=== PATIENT | female | born 1975 | race Caucasian/White ===

== ENCOUNTER 2023-07-10 16:32 | Emergency (ER) | payer OTHER ==
[2023-07-10 17:08] VITALS: BP 131/78; PULSE 99; RESP 18; TEMP 98.3; BMI 21.2
[2023-07-10] MEDS ORDERED: IBUPROFEN 400 MG TABLET (FP) PO ONE ×2 (17:25→17:28)
== END 2023-07-10 17:33 | disposition home or self-care (01) ==
LOC: FER 16:32
DX: S86.912A Strain of unspecified muscle(s) and tendon(s) at lower leg level, left leg, initial encounter (principal); M79.605 Pain in left leg; X50.1XXA Overexertion from prolonged static or awkward postures, initial encounter; V00.211A Fall from ice-skates, initial encounter; Y93.21 Activity, ice skating; Y92.330 Ice skating rink (indoor) (outdoor) as the place of occurrence of the external cause
CPT/HCPCS: 99283-25